=== PATIENT | male | born 1970 | race African-American/Black ===

== ENCOUNTER 2020-02-06 17:42 | Emergency (ER) | payer MEDICAID ==
[~2020-02-06] VITALS: Ht 175.3 cm; Wt 69.1 kg
--- NOTE | 2020-02-06 18:02 | NUR ---
BIB [facility] - PT ATTEMPTED TO CHECK INTO [facility]LL [facility]ARE TODAY HOWEVER HAD BA OF 0.49 AND WELL CARE REQUIRING MEDICAL EVAL AND CLEARANCE. PT STATES HE DRINKS APPROX 6 BOTTLES OF WINE OR TWO PINTS OF VODKA/DAY. VSS. IV ESTABLISHED BY EMS, 20G IN R AC AND 1L IVF GIVEN. PT HAS HX OF ALCOHOL WITHDRAWL SEIZURES AND TAKES KEPPRA - COMPLIANT WITH MEDS.
[2020-02-06 18:40] VITALS: BP 116/69
--- NOTE | 2020-02-06 18:41 | NUR ---
PT GIVEN FOOD, LAB AT BEDSIDE FOR LAB DRAW.
[2020-02-06 18:50] LABS: BASOPHILS # (AUTO) 0.01 x10^3/uL (0-0.1); BASOPHILS % (AUTO) 0 % (0-1); EOSINOPHILS # (AUTO) 0.01 x10^3/uL (0-0.4); EOSINOPHILS % (AUTO) 0 % (1-7); LYMPHOCYTES # (AUTO) 0.83 x10^3/uL (1-3.4); LYMPHOCYTES % (AUTO) 16 % (22-44); MD NO; MEAN CORPUSCULAR HEMOGLOBIN 29.2 pg (27.5-34.5); MEAN CORPUSCULAR HGB CONC 33.2 g/dL (33.2-36.2); MEAN CORPUSCULAR VOLUME 87.8 fL (81-97); MEAN PLATELET VOLUME 6.8 fL (7.4-10.4); MONOCYTES # (AUTO) 0.44 x10^3/uL (0.2-0.8); MONOCYTES % (AUTO) 9 % (2-9); NEUTROPHILS # (AUTO) 3.87 x10^3/uL (1.8-6.8); NEUTROPHILS % (AUTO) 75 % (42-75); PLATELET COUNT 360 x10^3/uL (130-400); RED BLOOD COUNT 4.57 x10^6/uL (4.38-5.82); RED CELL DISTRIBUTION WIDTH 13.4 % (9.4-14.8)
[2020-02-06 19:02] LABS: ALANINE AMINOTRANSFERASE 33 U/L (12-78); ALBUMIN 3.4 g/dL (3.4-5.0); ANION GAP 14 mmol/L (5-15); CALCIUM 7.9 mg/dL (8.5-10.1); CHLORIDE 105 mmol/L (98-107); CREATININE 0.74 mg/dL (0.7-1.3)
[2020-02-06 19:06] LABS: ALKALINE PHOSPHATASE 69 U/L (45-117); BILIRUBIN,TOTAL 0.4 mg/dL (0.2-1.0); TOTAL PROTEIN 7.1 g/dL (6.4-8.2)
--- NOTE | 2020-02-06 19:48 | NUR ---
SPOKE WITH MD ABOUT PT CONCERNS OF WITHDRAWAL SX. MD WAS OK WITH PT BEING DCd
== END 2020-02-06 19:49 | disposition home or self-care (01) ==
LOC: ED 18:26
DX: F10.220 Alcohol dependence with intoxication, uncomplicated (principal); Y90.9 Presence of alcohol in blood, level not specified
CPT/HCPCS: 36415; 80053; 80307; 85025; 99283

== ENCOUNTER 2020-02-12 16:35 | Emergency (ER) | payer MEDICAID ==
[~2020-02-12] VITALS: Ht 175.3 cm; Wt 70.0 kg
--- NOTE | 2020-02-12 16:44 | NUR ---
PT BIB EMS FOR ETOH AND SZ. PT HAD AN UNWITNESSED SZ AT THE [facility] TODAY. PT ALSO ADMITS TO DRINKING ALCOHOL TODAY. PT IS INTOXICATED AND SPEECH IS SLURRED. PT HAD NO EPISODE OF INCONTINENE. EMS DID NOT SEE A POSTICTAL STAGE. PT IS RESTING IN [facility]. CONNECTED TO MONITORING EQUIPMENT.
--- NOTE | 2020-02-12 16:55 | NUR ---
PT STATES HE HAS KEPPRA. BUT IT WAS UNCLEAR ON IF HE IS COMPLIANT WITH MEDICATION. PT IS POOR HISTORIAN
[2020-02-12 17:36] LABS: ALBUMIN 3.9 g/dL (3.4-5.0); ANION GAP 11 mmol/L (5-15); BASOPHILS # (AUTO) 0.02 x10^3/uL (0-0.1); BASOPHILS % (AUTO) 0 % (0-1); CALCIUM 8.4 mg/dL (8.5-10.1); CHLORIDE 108 mmol/L (98-107); CREATININE 0.86 mg/dL (0.7-1.3); EOSINOPHILS # (AUTO) 0.06 x10^3/uL (0-0.4); EOSINOPHILS % (AUTO) 1 % (1-7); LYMPHOCYTES # (AUTO) 1.79 x10^3/uL (1-3.4); LYMPHOCYTES % (AUTO) 43 % (22-44); MD NO; MEAN CORPUSCULAR HEMOGLOBIN 29.2 pg (27.5-34.5); MEAN CORPUSCULAR HGB CONC 33.1 g/dL (33.2-36.2); MEAN CORPUSCULAR VOLUME 88.5 fL (81-97); MONOCYTES # (AUTO) 0.33 x10^3/uL (0.2-0.8); MONOCYTES % (AUTO) 8 % (2-9); NEUTROPHILS # (AUTO) 1.98 x10^3/uL (1.8-6.8); NEUTROPHILS % (AUTO) 47 % (42-75); PLATELET COUNT 299 x10^3/uL (130-400); RED CELL DISTRIBUTION WIDTH 13.4 % (9.4-14.8)
[2020-02-12 18:45] VITALS: BP 118/79
--- NOTE | 2020-02-12 18:46 | NUR ---
PT RESTING IN [facility]. VSS. NAD
--- NOTE | 2020-02-12 19:36 | NUR ---
KUSHAL AND MALIK PROVIDED
--- NOTE | 2020-02-12 20:29 | NUR ---
PT AMBULATED WITH STEADY GATE. GIVEN CAB VOUCHER.
== END 2020-02-12 20:30 | disposition home or self-care (01) ==
LOC: ED 20:20
DX: S09.90XA Unspecified injury of head, initial encounter (principal); F10.229 Alcohol dependence with intoxication, unspecified; R94.31 Abnormal electrocardiogram [ECG] [EKG]; F17.200 Nicotine dependence, unspecified, uncomplicated; Y90.0 Blood alcohol level of less than 20 mg/100 ml; X58.XXXA Exposure to other specified factors, initial encounter; Y93.89 Activity, other specified; Y92.89 Other specified places as the place of occurrence of the external cause; Y99.8 Other external cause status
CPT/HCPCS: 36415; 70450; 80048; 80307; 82040; 85025; 93005; 99285

== ENCOUNTER 2020-02-13 09:01 | Emergency (ER) | payer MEDICAID ==
[~2020-02-13] VITALS: Ht 175.3 cm; Wt 66.0 kg
[2020-02-13] MEDS ORDERED: THIAMINE 100MG TABLET PO ONE (09:30)
[2020-02-13] MEDS ORDERED: ACETAMINOPHEN 500 MG TABLET PO ONE (09:30)
--- NOTE | 2020-02-13 11:00 | NUR ---
PT AT VERY EDGE OF BED. NOTED TO BE INCONTINENT OF URINE AND ROOM SMELLS OF CIGARETTE SMOKE. PT STATES HE DID LIGHT UP A CIGARETTE. FINISH GRINDER TAKEN FROM PT'S POCKET AND HIS BACKPACK AND PUT IN LOCKER. EXPLAINED TO PT HE COULD HAVE IT BACK WHEN HE IS DISCHARGED. PT REQUIRED COMPLETE ASSISTANCE TO GET BACK IN [facility] WITH VERY UNSTABLE GAIT.
--- NOTE | 2020-02-13 11:54 | NUR ---
PT SLEEPING. WILL CONTINUE TO MONITOR
[2020-02-13] MEDS ORDERED: ACETAMINOPHEN 500 MG TABLET ONE (12:34)
[2020-02-13] MEDS ORDERED: THIAMINE 100MG TABLET ONE (12:34)
[2020-02-13 12:42] VITALS: BP 130/91
--- NOTE | 2020-02-13 13:32 | NUR ---
Pt ambulated well to restroom. Food will be provided and pt then discharged.
--- NOTE | 2020-02-13 14:06 | NUR ---
DIETARY CALLED FOR TRAY.
--- NOTE | 2020-02-13 15:26 | NUR ---
AFTER PT DONE EATING, GIVEN HIS BACK PACK. PT AMBULATED TO DISCHARGE WINDOW, STEADY GAIT AND WITHOUT ASSISTANCE
== END 2020-02-13 15:29 | disposition home or self-care (01) ==
LOC: ED 10:19
DX: F10.129 Alcohol abuse with intoxication, unspecified (principal); M54.5 Low back pain; R53.1 Weakness; R51 Headache; Y90.9 Presence of alcohol in blood, level not specified
CPT/HCPCS: 99283

== ENCOUNTER 2020-02-13 16:16 | Emergency (ER) | payer MEDICAID ==
[~2020-02-13] VITALS: Ht 175.3 cm; Wt 70.0 kg
[2020-02-13 16:29] VITALS: BP 125/81
--- NOTE | 2020-02-13 17:07 | NUR ---
DIRECTOR OF EMAIL MARKETING: PT TO ROOM FROM LOBBY VIA WHEELCHAIR. MANASA
--- NOTE | 2020-02-13 17:18 | NUR ---
FIRST CONTACT WITH PT. PT WAS DCd FROM ER 30 MIN AGO FOR ETOH. WHILE WAITING FOR HIS CAB HE SAID "I DONT FEEL GOOD AND I WANT TO BE CHECKED OUT" PT'S AOX4. [facility] EVEN AND UNLABORED.
[2020-02-13] MEDS ORDERED: THIAMINE 100MG TABLET PO ONE (17:30)
[2020-02-13] MEDS ORDERED: THIAMINE 100MG TABLET ONE (17:39)
--- NOTE | 2020-02-13 17:42 | NUR ---
PT MEDICATED PER [facility]. PT TOLERATED WELL.
[2020-02-13 17:49] LABS: MEAN CORPUSCULAR HEMOGLOBIN 28.9 pg (27.5-34.5); MEAN CORPUSCULAR HGB CONC 32.8 g/dL (33.2-36.2); MEAN CORPUSCULAR VOLUME 88.3 fL (81-97); MEAN PLATELET VOLUME 7.1 fL (7.4-10.4); PLATELET COUNT 296 x10^3/uL (130-400); RED BLOOD COUNT 5.15 x10^6/uL (4.38-5.82)
[2020-02-13 18:00] LABS: ALBUMIN 3.9 g/dL (3.4-5.0); ANION GAP 11 mmol/L (5-15); CALCIUM 8.9 mg/dL (8.5-10.1); CHLORIDE 102 mmol/L (98-107); CREATININE 0.82 mg/dL (0.7-1.3)
[2020-02-13 18:12] LABS: BASOPHILS # (AUTO) 0.02 x10^3/uL (0-0.1); BASOPHILS % (AUTO) 1 % (0-1); EOSINOPHILS # (AUTO) 0.09 x10^3/uL (0-0.4); EOSINOPHILS % (AUTO) 2 % (1-7); LYMPHOCYTES # (AUTO) 1.18 x10^3/uL (1-3.4); LYMPHOCYTES % (AUTO) 27 % (22-44); MD SCAN; MONOCYTES # (AUTO) 0.21 x10^3/uL (0.2-0.8); MONOCYTES % (AUTO) 5 % (2-9); NEUTROPHILS # (AUTO) 2.85 x10^3/uL (1.8-6.8); NEUTROPHILS % (AUTO) 65 % (42-75)
--- NOTE | 2020-02-13 18:17 | NUR ---
Patient given discharge instructions and they have confirmed that they understand the instructions. Patient ambulatory with steady gait.
== END 2020-02-13 18:18 | disposition home or self-care (01) ==
LOC: ED 18:12
DX: F10.220 Alcohol dependence with intoxication, uncomplicated (principal); R51 Headache; Y90.9 Presence of alcohol in blood, level not specified
CPT/HCPCS: 36415; 80048; 80307; 82040; 85025; 99283

== ENCOUNTER 2020-05-21 07:22 | Emergency (ER) | payer MEDICAID ==
[~2020-05-21] VITALS: Ht 175.3 cm; Wt 68.0 kg
[2020-05-21] MEDS ORDERED: OXYcodone/APAP 5/325MG TABLET PO ONE (08:00)
[2020-05-21] MEDS ORDERED: KETOROLAC 30 MG/1 ML IM ONE (08:00)
[2020-05-21] MEDS ORDERED: METHOCARBAMOL 750 MG TABLET PO ONE (08:00)
[2020-05-21] MEDS ORDERED: METHOCARBAMOL 750 MG TABLET ONE (08:16)
[2020-05-21] MEDS ORDERED: KETOROLAC 30 MG/1 ML ONE (08:17)
[2020-05-21] MEDS ORDERED: OXYcodone/APAP 5/325MG TABLET ONE (08:17)
[2020-05-21] MEDS ORDERED: DIAZEPAM 5 MG TABLET PO ONE (09:30)
[2020-05-21 09:53] VITALS: BP 138/77
--- NOTE | 2020-05-21 10:03 | NUR ---
Pain improved. DC'd
== END 2020-05-21 10:06 | disposition home or self-care (01) ==
LOC: ED 07:51
DX: S39.012A Strain of muscle, fascia and tendon of lower back, initial encounter (principal); M54.41 Lumbago with sciatica, right side; F17.290 Nicotine dependence, other tobacco product, uncomplicated; X58.XXXA Exposure to other specified factors, initial encounter; Y93.89 Activity, other specified; Y92.89 Other specified places as the place of occurrence of the external cause; Y99.8 Other external cause status
CPT/HCPCS: 72110; 96372; 99283; J1885

== ENCOUNTER 2020-12-21 18:12 | Emergency (ER) | payer OTHER, MEDICAID ==
[~2020-12-21] VITALS: Ht 175.3 cm; Wt 70.5 kg
--- NOTE | 2020-12-21 18:17 | NUR ---
pt brought in by [facility] for two witnessed sz at work. pt has a hematoma to the right posterior head. A/Ox4.
--- NOTE | 2020-12-21 18:23 | NUR ---
pt changed into hospital gown, EKG completed. SZ precautions in place. Connected to monitors. MD at bedside.
[2020-12-21] MEDS ORDERED: LEVETIRACETAM 1,000 MG in SODIUM CHLORIDE 0.9% 100 ML IV ONE (18:30)
--- NOTE | 2020-12-21 18:49 | NUR ---
medicated per eMAR
[2020-12-21 18:52] LABS: BASOPHILS % (AUTO) 1 % (0-1); EOSINOPHILS % (AUTO) 0 % (1-7); LYMPHOCYTES % (AUTO) 18 % (22-44); MEAN CORPUSCULAR HEMOGLOBIN 30.4 pg (27.5-34.5); MEAN CORPUSCULAR HGB CONC 33.6 g/dL (33.2-36.2); MEAN PLATELET VOLUME 7.2 fL (7.4-10.4); MONOCYTES % (AUTO) 8 % (2-9); NEUTROPHILS % (AUTO) 73 % (42-75); PLATELET COUNT 290 x10^3/uL (130-400)
--- NOTE | 2020-12-21 18:54 | NUR ---
Report to Chip
[2020-12-21 19:07] LABS: ALBUMIN 4.1 g/dL (3.4-5.0); ANION GAP 13 mmol/L (5-15); CALCIUM 8.9 mg/dL (8.5-10.1); CHLORIDE 103 mmol/L (98-107); CREATININE 0.81 mg/dL (0.7-1.3)
[2020-12-21 19:40] VITALS: BP 133/77
== END 2020-12-21 19:42 | disposition home or self-care (01) ==
LOC: ED 19:15
DX: G40.309 Generalized idiopathic epilepsy and epileptic syndromes, not intractable, without status epilepticus (principal); R89.2 Abnormal level of other drugs, medicaments and biological substances in specimens from other organs, systems and tissues; R00.0 Tachycardia, unspecified; F17.200 Nicotine dependence, unspecified, uncomplicated
CPT/HCPCS: 36415; 80048; 82040; 85025; 93005; 96374; 99284; J1953; 96360; 96365